=== PATIENT | female | born 1990 | race Asian ===

== ENCOUNTER → 2017-12-11 08:50 | Emergency (ER) | payer BC ==
[2017-12-11 10:32] LABS: ABS Basophils 0 10^3/ul (0-0.2); ABS Eosinophils 0 10^3/ul (0-0.6); ABS Lymphocytes 1.6 10^3/ul (1.0-4.8); ABS Monocytes 0.5 10^3/ul (0-0.8); ABS Neutrophils 5.2 10^3/ul (1.5-7.7); ABS Nucleated RBC 0 10^3/ul; Eosinophil % 0.6 % (0-6); Hematocrit 41 % (35-47); Hemoglobin 14.1 g/dl (12.0-16.0); Lymphocyte % 21.6 % (25-47); Mean Corpuscular HGB Conc 35 g/dl (31-36); Mean Corpuscular Hemoglobin 31 pg (27-31); Mean Corpuscular Volume 89 fL (80-97); Nucleated Red Blood Cells % 0; Platelet Count 265 10^3/ul (150-450); Red Blood Count 4.59 10^6/ul (4.0-5.4); Red Cell Distribution Width 13 % (10.5-15); White Blood Count 7.4 10^3/ul (3.5-10.8)
[2017-12-11 10:49] LABS: EGFR Non-African American 126.3 (>60)
--- NOTE | 2017-12-11 13:50 | RAD ---
HISTORY: Pain and bleeding, 7 weeks . The gestational age by dates is 7 weeks and 4 days COMPARISONS: None TECHNIQUE: Multiple transverse and longitudinal ultrasound images were obtained of the pelvis using grayscale, color Doppler, spectral Doppler imaging and M-Mode Doppler imaging using the endovaginal transducer. FINDINGS: UTERUS: The uterus is normal in shape, size, contour, and echotexture. GESTATION: There is a single live intrauterine gestation. The crown-rump length measures 1.5 cm for a gestational age of 7 weeks, 6 days. The IGOR is July 24, 2018. This is concordant with age by dates.. cardiac motion is detected at a rate of 163 beats per minute. Gross movement is identified. anatomy cannot be assessed secondary to early dates. The amniotic fluid is qualitatively normal. There are no retroplacental fluid collections. CUL-DE-SAC: There is no free fluid within the cul-de-sac. RIGHT OVARY: The right ovary measures 1.9 x 1.4 x 1.6 cm. ] Normal ovary flow LEFT OVARY: The left ovary is not well-visualized BLADDER: The bladder is not well visualized. IMPRESSION: SINGLE LIVE INTRAUTERINE GESTATION AT 7 WEEKS AND 6 DAYS BY CROWN-RUMP LENGTH
[2017-12-11 15:26] LABS: Urine Appearance Cloudy; Urine Blood 2+ (Negative); Urine Color Yellow; Urine Ketones 1+ (Negative); Urine Protein Negative (Negative); Urine Urobilinogen Negative (Negative)
[2017-12-11 15:59] VITALS: BP 109/71
--- NOTE | 2017-12-11 18:29 | ED ---
Chelle Hooper Tenzin, scribed for Lam Harris MD on 12/11/17 at 0957 . - HPI Summary HPI Summary: Pt is a 2-bsbzi-bamiunxr, 27 years old female with complaints of vaginal bleeding and cramps when she woke up this morning. She also complains of nausea. She has not eaten anything this morning. Her LNMP was 10/15/17. G=1, P= 0. - History of Current Complaint Chief Complaint: EDOBProblems Stated Complaint: ABNORMAL BLEEDING-7 WKS PREG Time Seen by Provider: 12/11/17 09:19 Hx Obtained From: Patient Chief Complaint: Vaginal Bleeding Onset/Duration: Started Hours Ago Timing: Lasting Hours Severity: Mild Current Severity: Mild Pain Intensity: 4 Associated Signs and Symptoms: Positive: Vaginal Bleeding or Discharge - Allergies/Home Medications Allergies/Adverse Reactions: Allergies Allergy/AdvReac Type Severity Reaction Status Date / Time No Known Allergies Allergy Verified 12/11/17 08:53 Home Medications: Home Medications Levothyroxine TAB* [Synthroid TAB*] 75 mcg PO DAILY 12/11/17 [History Confirmed 12/11/17] Vitamin TAB* 1 tab PO DAILY 12/11/17 [History Confirmed 12/11/17] PMH/Surg Hx/FS Hx/Imm Hx Endocrine/Hematology History: Reports: Hx Thyroid Disease Opthamlomology History: Denies: Hx Legally Blind EENT History: Denies: Hx Deafness Infectious Disease History: No Infectious Disease History: Denies: Traveled Outside the [place] in Last 30 Days - Family History Known Family History: Positive: Other - Patient denies relevant FHx - Social History Alcohol Use: None Substance Use Type: Reports: None Smoking Status (MU): Never Smoked Tobacco Review of Systems Positive: Nausea Positive: pain - cramps, other - Vaginal bleeding All Other Systems Reviewed And Are Negative: Yes Physical Exam - Summary Physical Exam Summary: Appearance: The patient is well-nourished in no acute distress and in no acute pain. Skin: The skin is warm and dry and skin color reflects adequate perfusion. HEENT: The head is normocephalic and atraumatic. The pupils are equal and reactive. The conjunctivae are clear and without drainage. Nares are patent and without drainage. Mouth reveals moist mucous membranes and the throat is without erythema and exudate. The external ears are intact. The ear canals are patent and without drainage. The tympanic membranes are intact. Neck: the neck is supple with full range of motion and non-tender. There are no carotid bruits. There is no neck vein distension. Respiratory: Chest is non-tender. Lungs are clear to auscultation and breath sounds are symmetrical and equal. Cardiovascular: Heart is regular rate and rhythm. There is no murmur or rub auscultated. There is no peripheral edema and pulses are symmetrical and equal. Abdomen: The abdomen is soft and non-tender. There are normal bowel sounds heard in all four quadrants and there is no organomegaly palpated. Musculoskeletal: There is no back tenderness noted. Extremities are non-tender with full range of motion. There is good capillary refill. There is no peripheral edema or calf tenderness elicited. Neurological: Patient is alert and oriented to person, place and time. The patient has symmetrical motor strength in all four extremities. Cranial nerves are grossly intact. Deep tendon reflexes are symmetrical and equal in all four extremities. Psychiatric: The patient has an appropriate affect and does not exhibit any anxiety or depression. - Physical Exam Triage Information Reviewed: Yes Vital Signs Reviewed: Yes Diagnostics - Vital Signs Vital Signs Temp Pulse Resp BP Pulse Ox 12/11/17 09:11 78 100 12/11/17 09:10 74 110/68 99 12/11/17 08:53 98.1 F 79 16 117/76 100 - Laboratory Lab Results: Lab Results 12/11/17 12/11/17 12/11/17 Range/Units 10:13 10:13 10:15 WBC 7.4 (3.5-10.8) 10^3/ul RBC 4.59 (4.0-5.4) 10^6/ul Hgb 14.1 (12.0-16.0) g/dl Hct 41 (35-47) % MCV 89 (80-97) fL MCH 31 (27-31) pg MCHC 35 (31-36) g/dl RDW 13 (10.5-15) % Plt Count 265 (150-450) 10^3/ul MPV 8.0 (7.4-10.4) um3 Neut % (Auto) 70.5 (38-83) % Lymph % (Auto) 21.6 L (25-47) % [place] % (Auto) 7.0 (0-7) % Eos % (Auto) 0.6 (0-6) % Baso % (Auto) 0.3 (0-2) % Absolute Neuts (auto) 5.2 (1.5-7.7) 10^3/ul Absolute Lymphs (auto) 1.6 (1.0-4.8) 10^3/ul Absolute Monos (auto) 0.5 (0-0.8) 10^3/ul Absolute Eos (auto) 0 (0-0.6) 10^3/ul Absolute Basos (auto) 0 (0-0.2) 10^3/ul Absolute Nucleated RBC 0 10^3/ul Nucleated RBC % 0 Sodium 136 L (139-145) mmol/L Potassium 3.7 (3.5-5.0) mmol/L Chloride 105 (101-111) mmol/L Carbon Dioxide 23 (22-32) mmol/L Anion Gap 8 (2-11) mmol/L BUN 5 L (6-24) mg/dL Creatinine 0.57 (0.51-0.95) mg/dL Est GFR ( Amer) 162.4 (>60) Est GFR (Non-Af Amer) 126.3 (>60) BUN/Creatinine Ratio 8.8 (8-20) Glucose 95 (70-100) mg/dL Calcium 9.0 (8.6-10.3) mg/dL Total Bilirubin 0.50 (0.2-1.0) mg/dL AST 14 (13-39) U/L ALT 9 (7-52) U/L Alkaline Phosphatase 39 (34-104) U/L Total Protein 7.0 (6.4-8.9) g/dL Albumin 4.0 (3.2-5.2) g/dL Globulin 3.0 (2-4) g/dL Albumin/Globulin Ratio 1.3 (1-3) TSH 2.80 (0.34-5.60) mcIU/mL Beta HCG, Quant 305883.00 mIU/mL Urine Color Urine Appearance Urine pH (5-9) Ur Specific [place] (1.010-1.030) Urine Protein (Negative) Urine Ketones (Negative) Urine Blood (Negative) Urine Nitrate (Negative) Urine Bilirubin (Negative) Urine Urobilinogen (Negative) Ur Leukocyte Esterase (Negative) Urine WBC (Auto) (Absent) Urine RBC (Auto) (Absent) Ur Squamous Epith Cells (Absent) Urine Bacteria (Absent) Urine Glucose (Negative) Blood Type O Positive Antibody Screen Negative 12/11/17 Range/Units 15:12 WBC (3.5-10.8) 10^3/ul RBC (4.0-5.4) 10^6/ul Hgb (12.0-16.0) g/dl Hct (35-47) % MCV (80-97) fL MCH (27-31) pg MCHC (31-36) g/dl RDW (10.5-15) % Plt Count (150-450) 10^3/ul MPV (7.4-10.4) um3 Neut % (Auto) (38-83) % Lymph % (Auto) (25-47) % [place] % (Auto) (0-7) % Eos % (Auto) (0-6) % Baso % (Auto) (0-2) % Absolute Neuts (auto) (1.5-7.7) 10^3/ul Absolute Lymphs (auto) (1.0-4.8) 10^3/ul Absolute Monos (auto) (0-0.8) 10^3/ul Absolute Eos (auto) (0-0.6) 10^3/ul Absolute Basos (auto) (0-0.2) 10^3/ul Absolute Nucleated RBC 10^3/ul Nucleated RBC % Sodium (139-145) mmol/L Potassium (3.5-5.0) mmol/L Chloride (101-111) mmol/L Carbon Dioxide (22-32) mmol/L Anion Gap (2-11) mmol/L BUN (6-24) mg/dL Creatinine (0.51-0.95) mg/dL Est GFR ( Amer) (>60) Est GFR (Non-Af Amer) (>60) BUN/Creatinine Ratio (8-20) Glucose (70-100) mg/dL Calcium (8.6-10.3) mg/dL Total Bilirubin (0.2-1.0) mg/dL AST (13-39) U/L ALT (7-52) U/L Alkaline Phosphatase (34-104) U/L Total Protein (6.4-8.9) g/dL Albumin (3.2-5.2) g/dL Globulin (2-4) g/dL Albumin/Globulin Ratio (1-3) TSH (0.34-5.60) mcIU/mL Beta HCG, Quant mIU/mL Urine Color Yellow Urine Appearance Cloudy Urine pH 8.0 (5-9) Ur Specific [place] 1.010 (1.010-1.030) Urine Protein Negative (Negative) Urine Ketones 1+ A (Negative) Urine Blood 2+ A (Negative) Urine Nitrate Negative (Negative) Urine Bilirubin Negative (Negative) Urine Urobilinogen Negative (Negative) Ur Leukocyte Esterase Negative (Negative) Urine WBC (Auto) Absent (Absent) Urine RBC (Auto) Trace(0-2/hpf) (Absent) Ur Squamous Epith Cells Present A (Absent) Urine Bacteria Absent (Absent) Urine Glucose Negative (Negative) Blood Type Antibody Screen Result Diagrams: 12/11/17 10:15 12/11/17 10:13 Lab Statement: Any lab studies that have been ordered have been reviewed, and results considered in the medical decision making process. - Additional Comments Diagnostic Additional Comments: US PREG TRANSVAGINAL interpreted by radiologist. IMPRESSION: SINGLE LIVE INTRAUTERINE GESTATION AT 7 WEEKS AND 6 DAYS BY CROWN- RUMP LENGTH. Dr. Harris reviewed the report. Course/Dx - Course Course Of Treatment: Ms. Charles is primagravida and about 7 weeks by dates. She has had an initital appointment at [facility] but no U/S yet. She woke up this AM and had been bleeding 'like a normal period' today. HEr HCG was high so an U/S was obtained which showed a 7 week, 6 day viable IUP. She was reassured and recomended close F/U as she could still miscarry. - Diagnoses Provider Diagnoses: Threatened miscarriage Discharge - Sign-Out/Discharge Documenting (check all that apply): Discharge/Admit/Transfer - Discharge Plan Condition: Stable Disposition: HOME Patient Education Materials: Threatened Miscarriage (ED) Referrals: Deshawn Womack MD [Medical Doctor] - 3 Days Additional Instructions: Follow up with Dr. Womack in two to three days. Return to the emergency department for any new or worsening symptoms. - Billing Disposition and Condition Condition: STABLE Disposition: HOME The documentation as recorded by the Chelle clarke Tenzin accurately reflects the service I personally performed and the decisions made by me, Lam Harris MD.
== END | disposition home or self-care (01) ==
LOC: ED 08:50
DX: O20.0 Threatened abortion (principal); Z3A.01 Less than 8 weeks gestation of pregnancy; O99.281 Endocrine, nutritional and metabolic diseases complicating pregnancy, first trimester
CPT/HCPCS: 36415; 76817; 80053; 81003; 81015; 84443; 84702; 85025; 86850; 86900; 86901; 99282

== ENCOUNTER 2017-12-17 17:20 | Emergency (ER) | payer BC ==
[2017-12-17 17:37] VITALS: BP 121/71
[2017-12-17] MEDS ORDERED: Metoclopramide IV* 5 MG/ML 2 ML VIAL IV ONE (18:00)
[2017-12-17] MEDS ORDERED: NS 0.9% 1000 ML* 1,000 ML IV SCH (18:00)
--- NOTE | 2017-12-17 18:52 | UC ---
Abdominal Pain Female HPI - HPI Summary HPI Summary: PATIENT IS 8 WEEKS AND HAS HAD MILD MORNING SICKNESS. STARTING 2 DAYS AGO THE NAUSEA BECAME CONSTANT AND TODAY SHE HAS COUNTED 22 EPISODES OF EMESIS. NO BLOOD. SHE HAS BEEN UNABLE TO KEEP DOWN ANY SOLID FOOD OR LIQUID TODAY. SHE DENIES ANY ABDOMINAL CRAMPING OR VAGINAL BLEEDING. HAS A FOLLOW-UP APPOINTMENT TOMORROW WITH SULFIDE HEAD OPERATOR. - History of Current Complaint Chief Complaint: UCGI Stated Complaint: VOMITING Time Seen by Provider: 12/17/17 17:39 Hx Obtained From: Patient, Family/Certified Medication Technician - Onset/Duration: Sudden Onset, Lasting Days, Still Present Timing: Constant Severity Initially: Moderate Severity Currently: Moderate Pain Intensity: 0 Pain Scale Used: 0-10 Numeric Character: Aching Aggravating Factor(s): Food Alleviating Factor(s): Nothing Associated Signs and Symptoms: Positive: Decreased Appetite, Nausea, Vomiting. Negative: Fever, Back Pain, Constipation, Blood in Stool, Urinary Symptoms, Vaginal Bleeding, Vaginal Discharge, Diarrhea Allergies/Adverse Reactions: Allergies Allergy/AdvReac Type Severity Reaction Status Date / Time No Known Allergies Allergy Verified 12/17/17 17:37 PMH/Surg Hx/FS Hx/Imm Hx Endocrine History: Hypothyroidism - Surgical History Surgical History: None - Family History Known Family History: Positive: Other - Patient denies relevant FHx Negative: Hypertension - Social History Alcohol Use: None Substance Use Type: None Smoking Status (MU): Never Smoked Tobacco Review of Systems Constitutional: Negative Respiratory: Negative Cardiovascular: Negative Gastrointestinal: Vomiting, Nausea Genitourinary: Negative All Other Systems Reviewed And Are Negative: Yes Physical Exam Triage Information Reviewed: Yes Appearance: Well-Appearing, No Pain Distress, Well-Nourished Vital Signs: Initial Vital Signs Temp 99 F 12/17/17 17:31 Pulse 73 12/17/17 17:31 Resp 18 12/17/17 17:31 BP 121/71 12/17/17 17:31 Pulse Ox 99 12/17/17 17:31 Vital Signs Reviewed: Yes Eyes: Positive: Conjunctiva Clear ENT: Positive: Hearing grossly normal Neck: Positive: Supple, Nontender, No Lymphadenopathy Respiratory Exam: Normal Cardiovascular Exam: Normal Abdomen Description: Positive: Soft, Other: - MILDLY TENDER SUPRAPUBIC AREA. NO REBOUND OR RIGIDITY.. Negative: CVA Tenderness (R), CVA Tenderness (L), Distended, Guarding Bowel Sounds: Positive: Present Musculoskeletal: Positive: No Edema Neurological: Positive: Alert Psychological: Positive: Normal Response To Family, Age Appropriate Behavior Skin: Negative: rashes Re-Evaluation - Re-Evaluation First Eval Re-Evaluation Time: 19:00 - FEELS IMPROVED AFTER 1L NS AND 10MG REGLAN. NO NAUSEA. WILL TRY PO CHALLENGE Change: Improved Abd Pain Female Course/Dx - Course Course Of Treatment: PATIENT IMPROVED AFTER NORMAL SALINE AND REGLAN. SUCCESSFUL PO CHALLENGE WITH CRACKERS AND WATER. WANTGS TO GO HOME. WAS UNABLE TO PROVIDE A URINE SAMPLE. HAVE ADVISED TO KEEP HER SULFIDE HEAD OPERATOR APPOINTMENT TOMORROW. I PRESCRIBED DICLEGIS FOR NAUSEA. TO THE ER IF SHE HAS RECURRENCE OF HER SYMPTOMS IN THE MEANTIME. - Differential Dx/Diagnosis Provider Diagnoses: NAUSEA AND VOMITING IN Discharge - Sign-Out/Discharge Documenting (check all that apply): Discharge/Admit/Transfer - Discharge Plan Condition: Stable Disposition: HOME Prescriptions: Doxylamine/Pyridoxine(NF) [Diclegis (NF)] 2 tab PO DAILY #30 tab Patient Education Materials: Nausea and Vomiting in (ED) Forms: *Work Release Referrals: Lily English MD [Primary Care Provider] - If Needed Additional Instructions: YOU FELT MUCH BETTER AFTER 10 MG OF REGLAN AND 1 L OF NORMAL SALINE. CONTINUE TO HYDRATE ORALLY. KEEP YOUR FOLLOW-UP APPOINTMENT WITH SULFIDE HEAD OPERATOR TOMORROW. HAVE PRESCRIBED DICLEGIS FOR YOU TO USE FOR NAUSEA. IF THIS IS NOT EFFECTIVE DISCUSS ALTERNATIVE MEDICATIONS WITH YOUR SULFIDE HEAD OPERATOR. START WITH 2 TABS AT BEDTIME. IF AFTER 2 DAYS YOU STILL HAVE NAUSEA DURING THE DAY YOU MAY TAKE ONE TAB IN THE MORNING AND 2 TABS AT NIGHT. OKAY TO INCREASE TO 1 TAB IN THE MORNING 1 TAB IN THE AFTERNOON AND 2 TABS AT NIGHT TIME. NO MORE THAN 4 IN A DAY. IF DICLEGIS IS NOT COVERED - GET UNISOM (DOXYLAMINE) AND VITAMIN B6 ( DICLEGIS IS DOXYLAMINE 10MG AND VIT B6 10MG COMBINED). - Billing Disposition and Condition Condition: STABLE Disposition: HOME
== END 2017-12-17 19:48 | disposition home or self-care (01) ==
LOC: UCEAST 17:20
DX: O21.0 Mild hyperemesis gravidarum (principal); Z3A.08 8 weeks gestation of pregnancy; E03.9 Hypothyroidism, unspecified
CPT/HCPCS: 96360; 96374; 99202; G0463; J2765

== ENCOUNTER 2018-07-17 02:58 | Inpatient (IN) | payer BC ==
[2018-07-17] MEDS ORDERED: Promethazine INJ(RESTRICTED)* 25 MG/ML 1 ML VIAL IV ONE (03:32)
[2018-07-17] MEDS ORDERED: Nalbuphine* 10 MG/ML 1 ML VIAL IM ONE (03:32)
[2018-07-17] MEDS ORDERED: Nalbuphine* 10 MG/ML 1 ML VIAL IV ONE ×2 (03:32→07:39)
[2018-07-17] MEDS ORDERED: Promethazine INJ(RESTRICTED)* 25 MG/ML 1 ML VIAL IM ONE (03:32)
--- NOTE | 2018-07-17 03:52 | PN ---
L&D Outpatient: Visit - Reproductive Information Estimated Due Date: 07/26/18 Gestational Age: 38 Weeks and 5 Days : 1 Para: 0 - Reason for Visit Visit Reason: Pt reports ctx have increased in frequency and intensity since discharge home earlier in the day. Also reports frequent nausea and vomiting. Feels active FM, denies leaking of fluid. - Antepartal Records Antepartal Record: Reviewed, Complicated by: - hypothyroidism - Patient History Patient History Significant: Yes Patient History Significant For: hypothyroidism Review of Systems Constitutional: Uncomfortable CV Complaint: No Respiratory: Shortness of Breath: No Gastrointestinal: Normal Bowel Movement, Nausea, Vomiting Genitourinary: No Dysuria, No Bleeding, No Leaking Fluid Musculoskeletal: No Epigastric Pain, Contractions Neurological: No Headache, No Visual Changes Movement: Normal L&D Outpatient: Exam Vitals - Most Recent: T-97.2, P-102, R-20, BP-111/69, O2-100% - Cervical Exam Cervical Exam: 2cm/ 80%/ -1/ vtx - Abdominal Exam Abdomen Exam: Non-Tender, Fundal Height Consistent with Dates - Membranes Membrane Status: Intact - Ultrasound/Biophysical Profile Ultrasound Status: Not Done EFM Findings - External Monitor Findings Baseline Heart Rate: 120 External Monitor Findings: Accelerations Present, No Pattern of Variable or Late Decelerations, Variability Moderate, Baseline Stable Contractions: Regular, Mild, Moderate, 45-90 Seconds Contraction Frequency: 2-3 minutes L&D Outpatient: Asses/Plan Assessment: 28 year old at 38 5/7 weeks gestation in early labor with intact membranes , GBS negative, no evidence of acidemia. Plan: Continue Observation - Offered therapeutic rest with Nubain and Phenergan. Pt agrees.
[2018-07-17 07:45] LABS: ABS Basophils 0 10^3/ul (0-0.2); ABS Eosinophils 0 10^3/ul (0-0.6); ABS Lymphocytes 1.3 10^3/ul (1.0-4.8); ABS Monocytes 0.4 10^3/ul (0-0.8); ABS Neutrophils 10.3 10^3/ul (1.5-7.7); ABS Nucleated RBC 0 10^3/ul; Eosinophil % 0.1 %; Hematocrit 35 % (35-47); Hemoglobin 11.1 g/dl (12.0-16.0); Lymphocyte % 10.9 %; Mean Corpuscular HGB Conc 32 g/dl (31-36); Mean Corpuscular Hemoglobin 24 pg (27-31); Mean Corpuscular Volume 75 fL (80-97); Mean Platelet Volume 7.8 fL (7.4-10.4); Nucleated Red Blood Cells % 0.1; Platelet Count 300 10^3/ul (150-450); Red Cell Distribution Width 17 % (10.5-15)
--- NOTE | 2018-07-17 08:06 | HP ---
General Information - Reason for Visit Contractions increasing in frequency and intensity since 299 - General Information Maternal Age: 28 Grav: 1 Para: 0 SAB: 0 IEA: 0 Estimated Due Date: 07/26/18 Determined By: LMP Gestational Age in Weeks/Days: 38 5/7 Maternal Blood Type and Rh: O Positive - Results this Serology/RPR Result: Non-Reactive Rubella Result: Immune HBsAg Result: Negative HIV Result: Negative GBS Culture Result: Negative Past Medical History Delivery History: See Records - Primigravida Pertinent Past Medical History: See Records - hypothyroidism Pertinent Past Surgical History: None Pertinent Family History: Non-Contributory - Antepartal Records Antepartal Records: Reviewed, Complicated by: - hypothyroidism Review of Systems Constitutional: Uncomfortable CV Complaint: No Respiratory: Shortness of Breath: No Gastrointestinal: Nausea, Vomiting Genitourinary: No Dysuria, No Bleeding, No Leaking Fluid Musculoskeletal: No Epigastric Pain, Contractions Neurological: No Headache, No Visual Changes Movement: Normal Exam Allergies/Adverse Reactions: Allergies No Known Allergies Allergy (Verified 07/16/18 11:54) T-97.2, P-102, R-20, BP-111/69, O2-100% Lab Values - Entire Visit: Laboratory Tests 07/17/18 07/17/18 07:34 07:34 WBC 12.0 H RBC 4.60 Hgb 11.1 L Hct 35 MCV 75 L MCH 24 L MCHC 32 RDW 17 H Plt Count 300 MPV 7.8 Neut % (Auto) 85.7 Lymph % (Auto) 10.9 [place] % (Auto) 3.0 Eos % (Auto) 0.1 Baso % (Auto) 0.3 Absolute Neuts (auto) 10.3 H Absolute Lymphs (auto) 1.3 Absolute Monos (auto) 0.4 Absolute Eos (auto) 0 Absolute Basos (auto) 0 Absolute Nucleated RBC 0 Nucleated RBC % 0.1 Blood Type O Positive - Measurements Height: 5 ft 2.5 in Weight: 70.76 kg Weight in lbs: 156.940407 Body Mass Index (BMI): 28.0 Pre- Weight: 55.338 kg Weight Gained This : 34 lbs and 0 ozs - Exam Breast: Breast Exam Deferred CVA: No CVA Tenderness Extremities: Edema - trace pedal edema Heart: Normal Rhythm/Heart Sounds HEENT: No Significant Findings Lungs: Clear Bilaterally Rectal: Rectal Exam Deferred Reflexes: DTR 2+ Thyroid: No Thyromegaly - Abdominal Exam Abdomen Exam: Non-Tender, Fundal Height Consistent with Dates Targeted Exam Findings See L&D Outpatient Visit Provider Note for Findings: Yes Cervical Exam: 2cm Effacement: 80% Station: -1 Presenting Part: Vertex Membrane Status: Bulging Bleeding/Discharge: None EFM Findings - External Monitor Findings Baseline Heart Rate: 135 External Monitor Findings: Accelerations Present, No Pattern of Variable or Late Decelerations, Variability Moderate, Baseline Stable Contractions: Regular Contraction Frequency: 2-3 Assessment/Plan - Assessment 28 year old at 38 5/7 weeks gestation in early active labor, GBS negative, membranes intact, no evidence of acidemia - Plan Plan: Admit - Anticipate Vaginal Delivery Plan Comment: Discussed with pt that she is still in early labor and encouraged her to wait to get epidural if possible. Offered options of IV pain meds, nitrous, but pt strongly prefers epidural. Anesthesia notified. - Date/Time of Admission Date of Admission: 07/17/18 Time of Admission: 07:55
[2018-07-17] MEDS ORDERED: OBEPIDURAL* 250 ML EPIDURAL ONE (08:07)
[2018-07-17] MEDS ORDERED: Phenylephrine IV* 40 MCG/ML 10 ML SYRINGE IV PUSH PRN (09:57)
[2018-07-17] MEDS ORDERED: Lactated Ringers 1000 ML Bag* 1,000 ML IV ONE (09:57)
[2018-07-17] MEDS ORDERED: Sodium Citrate/Citric Acid* 15 ML UDC PO PRN (09:57)
[2018-07-17] MEDS ORDERED: Famotidine TAB* 20 MG PO PRN (09:57)
[2018-07-17] MEDS ORDERED: Oxytocin in LR* 20 UNITS/1,000 ML BAG IVPB SCH (18:00)
[2018-07-17] MEDS: Lactated Ringers 1000 ML Bag* 1,000 ML IV SCH ×2 (21:17→23:36)
[2018-07-18] MEDS: Lactated Ringers 1000 ML Bag* 1,000 ML IV SCH (02:01)
--- NOTE | 2018-07-18 04:15 | PN ---
Progress Note - Progress Note Date of Service: 07/18/18 Note: Comfortable after epidural bolus. Adequate contractions from 2129 to 129, then mvu 180-190. FHT with rising baseline, now 160, mod variability. Late decels when pitocin increased above 13mu/min. Cervix: 5cm/80%, vtx -1 IMP: arrest of dilation Consult with Dr. Ferguson regarding CS, agrees Discussed with pt/, agree
[2018-07-18] MEDS ORDERED: ceFOXitin 2 GM IVPREMIX* 2 GM/50 ML BAG IVPB ONE (04:17)
[2018-07-18] MEDS ORDERED: ceFOXitin 2 GM IVPREMIX* 2 GM/50 ML BAG ONE (04:18)
[2018-07-18] MEDS ORDERED: fentaNYL* 50 MCG/ML 2 ML VIAL (100 MCG VIAL) IV PRN (05:48)
[2018-07-18] MEDS ORDERED: HYDROcodone/ACETAMIN 5-325 MG* 1 TAB PO PRN (05:48)
[2018-07-18] MEDS ORDERED: Ibuprofen TAB* 600 MG PO PRN (05:48)
[2018-07-18] MEDS ORDERED: Naloxone* 0.4 MG/ML 1 ML VIAL IV PRN (05:48)
[2018-07-18] MEDS ORDERED: Acetaminophen TAB* 325 MG PO PRN ×2 (05:48→05:51)
[2018-07-18] MEDS ORDERED: DiMENhydriNATE IV* 50 MG/ML VIAL IV PUSH PRN (05:48)
[2018-07-18] MEDS ORDERED: Ondansetron INJ* 2 MG/ML VIAL IV PRN (05:48)
[2018-07-18] MEDS ORDERED: Zolpidem TAB* 5 MG PO PRN (05:51)
[2018-07-18] MEDS ORDERED: Glycerin ADULT SUPP PR PRN (05:51)
[2018-07-18] MEDS ORDERED: Witch Hazel PAD* JAR TOPICAL PRN (05:51)
[2018-07-18] MEDS ORDERED: Tetan/Diph/Pertus SYR(Tdap)* 0.5 ML SYR(BOOSTRIX) use SYR IM ONE (05:52)
[2018-07-18] MEDS ORDERED: Oxytocin in LR* 20 UNITS/1,000 ML BAG IVPB SCH (05:58)
[2018-07-18] MEDS ORDERED: Lactated Ringers 1000 ML Bag* 1,000 ML IV SCH (06:00)
[2018-07-18] MEDS: Morphine VIAL* 4 MG/ML VIAL (1 ml vial) IV PRN ×2 (06:53→07:35)
[2018-07-18] MEDS ORDERED: Lidocaine 1%* 5 ML VIAL ONE (07:14)
[2018-07-18] MEDS ORDERED: Ketorolac INJ* 30 MG/ML 1 ML VIAL ONE (07:17)
[2018-07-18] MEDS: Docusate CAP* 100 MG PO SCH ×3 (09:13→21:17)
[2018-07-18] MEDS: oxyCODONE/Acetamin 5/325 MG* TAB PO PRN ×4 (09:13→21:17)
[2018-07-18] MEDS: Levothyroxine TAB* 75 MCG TAB PO SCH (09:13)
[2018-07-18] MEDS: Simethicone TAB* 80 MG TAB.CHEW PO SCH ×4 (09:14→21:17)
--- NOTE | 2018-07-18 11:10 | OP ---
DATE OF OPERATION: 07/18/18 - ROOM #104 DATE OF : 88 SURGEON: Trinity Ferguson MD OPEN HEARTH HELPER: Coby Angela CNM ANESTHESIA: Spinal. PRE-OP DIAGNOSIS: Intrauterine 38 and 6/7th week, arrest of dilation. POST-OP DIAGNOSIS: Intrauterine 38 and 6/7th week, arrest of dilation. OPERATIVE PROCEDURE: Primary lower transverse with vacuum extraction. ESTIMATED BLOOD LOSS: 700 cc. URINE OUTPUT: 250 cc of clear yellow urine. FLUIDS: 1000 cc of crystalloid. FINDINGS: Revealed a vertex female with cord next to head. Thick meconium. Apgars were 9 at 1 minute and 9 at 5 minutes. Weight was 7 pounds 13 ounces. Normal appearing placenta. Three-vessel cord manually extracted, intact. Normal appearing tubes and ovaries bilaterally. COMPLICATIONS: None apparent. DISPOSITION: Stable to recovery room. DESCRIPTION OF PROCEDURE: The patient was placed in dorsal lithotomy position. The abdomen was prepped and draped in the sterile standard fashion. Anesthesia was tested to appropriate level and the patient was identified with universal protocol for correct procedure, patient and position. Incision was made 2 fingerbreadths above the pubic symphysis. This was carried down with scalpel incision. Fascia was incised in the midline and extended laterally and superiorly using curved Figueredo scissors. The peritoneum and the fascia were sharply from the muscles both inferiorly and anteriorly. Peritoneum was then entered bluntly. Allis was used to tent up on the lower uterine segment. Incision was made with scalpel. This was carried down through to membranes. Thick meconium was noted. Incision was extended bluntly. Attempt was made at delivery of head. Vacuum was applied. Delivery of head very easily with one application. There was cord noted protruding out with the head. Cord was milked and then clamped and cut, and was handed off to awaiting director labor standards. Appropriate cord blood was obtained. Placenta was manually extracted, noted to be intact. Uterus was exteriorized. Cavity was wiped clean and noted to be free of any membranes or placental tissue. The incision itself was reapproximated, first layer running locked x2, second layer running imbricated x1 and a stitch was placed right of the midline for hemostasis in a [id number] fashion. Tubes and ovaries were noted to have a normal appearance. Uterus was returned intraabdominally. Colic gutters were lavaged. Hemostasis was noted at the hysterotomy site. Peritoneum was reapproximated using 2-0 Vicryl in a running fashion. Subfascial area was visualized and noted to be hemostatic. The fascia was reapproximated using 0 Vicryl x2. The subcutaneous was lavaged. Hemostasis assured with Bovie coagulation, a Camper's fascia stitch was placed using 3-0 Vicryl in interrupted fashion for closure of Camper's fascia and the skin was then reapproximated using 4-0 Monocryl in a subcuticular fashion. Mastisol and Steri's were applied. All sponge, instruments, and blade counts were correct throughout the case. The patient tolerated the procedure well and went to recovery room in stable condition. [id number]/CPS #: [id number] MTDD
[2018-07-18] MEDS: Ketorolac INJ* 30 MG/ML 1 ML VIAL IV PRN ×2 (13:12→19:55)
[2018-07-19] MEDS: Ketorolac INJ* 30 MG/ML 1 ML VIAL IV PRN (01:30)
[2018-07-19] MEDS: oxyCODONE/Acetamin 5/325 MG* TAB PO PRN ×5 (01:30→21:10)
[2018-07-19] MEDS: Levothyroxine TAB* 75 MCG TAB PO SCH (05:53)
[2018-07-19 06:46] LABS: ABS Basophils 0 10^3/ul (0-0.2); ABS Eosinophils 0.1 10^3/ul (0-0.6); ABS Lymphocytes 1.6 10^3/ul (1.0-4.8); ABS Neutrophils 13.7 10^3/ul (1.5-7.7); ABS Nucleated RBC 0 10^3/ul; Eosinophil % 0.8 %; Hematocrit 23 % (35-47); Hemoglobin 7.5 g/dl (12.0-16.0); Lymphocyte % 9.7 %; Mean Corpuscular HGB Conc 33 g/dl (31-36); Mean Corpuscular Hemoglobin 24 pg (27-31); Mean Corpuscular Volume 75 fL (80-97); Mean Platelet Volume 7.4 fL (7.4-10.4); Nucleated Red Blood Cells % 0; Platelet Count 263 10^3/ul (150-450); Red Blood Count 3.08 10^6/ul (4.00-5.40); Red Cell Distribution Width 17 % (10.5-15); White Blood Count 16.4 10^3/ul (3.5-10.8)
[2018-07-19] MEDS: OBEPIDURAL* 250 ML EPIDURAL SCH ×2 (07:21→10:54)
[2018-07-19] MEDS: Ferrous Gluconate TAB* 324 MG TAB PO SCH ×2 (07:52→21:11)
[2018-07-19] MEDS: Simethicone TAB* 80 MG TAB.CHEW PO SCH ×3 (07:53→21:11)
[2018-07-19] MEDS: Ibuprofen TAB* 600 MG PO PRN ×3 (07:53→21:10)
[2018-07-19] MEDS: Docusate CAP* 100 MG PO SCH ×3 (07:53→21:11)
[2018-07-20] MEDS: oxyCODONE/Acetamin 5/325 MG* TAB PO PRN ×5 (01:50→23:49)
[2018-07-20] MEDS: Levothyroxine TAB* 75 MCG TAB PO SCH (06:32)
[2018-07-20] MEDS: Ibuprofen TAB* 600 MG PO PRN ×3 (06:33→23:50)
[2018-07-20] MEDS: Simethicone TAB* 80 MG TAB.CHEW PO SCH ×5 (08:59→21:26)
[2018-07-20] MEDS: Docusate CAP* 100 MG PO SCH ×3 (09:00→21:25)
[2018-07-20 11:42] LABS: ABS Basophils 0 10^3/ul (0-0.2); ABS Eosinophils 0.3 10^3/ul (0-0.6); ABS Lymphocytes 1.7 10^3/ul (1.0-4.8); ABS Monocytes 0.6 10^3/ul (0-0.8); ABS Neutrophils 10.6 10^3/ul (1.5-7.7); ABS Nucleated RBC 0 10^3/ul; Eosinophil % 2.1 %; Hematocrit 23 % (35-47); Hemoglobin 7.4 g/dl (12.0-16.0); Lymphocyte % 12.6 %; Mean Corpuscular HGB Conc 32 g/dl (31-36); Mean Corpuscular Hemoglobin 24 pg (27-31); Mean Corpuscular Volume 75 fL (80-97); Mean Platelet Volume 7.3 fL (7.4-10.4); Nucleated Red Blood Cells % 0; Platelet Count 317 10^3/ul (150-450); Red Blood Count 3.03 10^6/ul (4.00-5.40); Red Cell Distribution Width 17 % (10.5-15); White Blood Count 13.2 10^3/ul (3.5-10.8)
[2018-07-20] MEDS: Ferrous Gluconate TAB* 324 MG TAB PO SCH ×2 (11:43→21:25)
[2018-07-21] MEDS: oxyCODONE/Acetamin 5/325 MG* TAB PO PRN ×2 (04:16→09:21)
[2018-07-21] MEDS: Levothyroxine TAB* 75 MCG TAB PO SCH (06:20)
[2018-07-21] MEDS: Simethicone TAB* 80 MG TAB.CHEW PO SCH (07:39)
[2018-07-21] MEDS: Docusate CAP* 100 MG PO SCH (07:39)
[2018-07-21] MEDS: Ibuprofen TAB* 600 MG PO PRN (07:39)
[2018-07-21] MEDS: Ferrous Gluconate TAB* 324 MG TAB PO SCH (07:40)
[2018-07-21 07:47] VITALS: BP 118/76
--- NOTE | 2018-07-21 08:26 | PTEDU ---
Patient Name: MODESTO PERRIN AYDIN, AZAELAmparo selected video: Never Ever Shake a Baby to view on 07/21/2018 at 8:25:19 AM from [id number]
== END 2018-07-21 12:09 | disposition home or self-care (01) | DRG 540 ==
LOC: MCHOBOUT 02:58 → MCHOB 07:55
PROVIDERS: ADMIT Midwife; ATTEND Obstetrics & Gynecology
PROC: 10D00Z1 Extraction of Products of Conception, Low, Open Approach (ICD-10-PCS; principal; 2018-07-17)
PROC: 4A1HXCZ Monitoring of Products of Conception, Cardiac Rate, External Approach (ICD-10-PCS; 2018-07-17)
DX: O99.284 Endocrine, nutritional and metabolic diseases complicating childbirth (principal); E03.9 Hypothyroidism, unspecified; Z3A.38 38 weeks gestation of pregnancy; Z37.0 Single live birth; O76 Abnormality in fetal heart rate and rhythm complicating labor and delivery; O62.1 Secondary uterine inertia; O77.0 Labor and delivery complicated by meconium in amniotic fluid
CPT/HCPCS: 36415; 85025; 86850; 86900; 86901; A9270-GY; J0694; J1885; J2270; J2300; J2550